=== PATIENT | female | born 1940 | race Caucasian/White ===

== ENCOUNTER → 2021-10-16 08:36 | Outpatient (BNVA) | payer MEDICARE, SELFPAY | PROVIDERS: PCP Student in an Organized Health Care Education/Training Program; Visit Provider Nurse Practitioner Family | DX: I48.19 Other persistent atrial fibrillation (principal); Z95.0 Presence of cardiac pacemaker | CPT/HCPCS: 99213 ==

== ENCOUNTER → 2022-01-10 10:10 | Outpatient (BNVA) | payer MEDICARE, SELFPAY | PROVIDERS: PCP Student in an Organized Health Care Education/Training Program; Visit Provider Internal Medicine | DX: I48.19 Other persistent atrial fibrillation (principal); I10 Essential (primary) hypertension; Z95.0 Presence of cardiac pacemaker | CPT/HCPCS: 93280; 99213 ==

== ENCOUNTER 2022-01-28 05:19 | Day surgery (SDC) | payer MEDICARE, SELFPAY ==
[2022-01-27 13:33] VITALS: BMI 25.9
--- NOTE | 2022-01-28 05:55 | XRR_ITS ---
PROCEDURE INFORMATION: Exam: XR Chest Exam date and time: 01/28/2022 6:08 AM Age: 81 years old Clinical indication: Other: Pre op; Prior surgery; Surgery date: 6+ months; Surgery type: Pacemaker; Additional info: Pacemaker generator replacement TECHNIQUE: Imaging protocol: XR of the chest. Views: 1 view. Total images: 2 COMPARISON: No relevant prior studies available. FINDINGS: Tubes, catheters and devices: Cardiac pacemaker is in place with leads appearing appropriately positioned. No pneumothorax. Lungs: Unremarkable. No consolidation. Pleural spaces: See Tubes, catheters and devices finding. Heart/Mediastinum: Upper normal heart size noted. Bones/joints: Unremarkable. XR/XR chest 1V portable [id number] IMPRESSION: 1. Cardiac pacemaker is in place with leads appearing appropriately positioned. No pneumothorax. 2. No acute cardiopulmonary process.
[2022-01-28 06:07] VITALS: BP 155/81; PULSE 65; RESP 18; TEMP 36.2; O2SAT 98
[2022-01-28 06:20] LABS: Urine Appearance SL Hazy (CLEAR); Urine Color Yellow (Yellow); pH Urine 5 (5-7)
[2022-01-28 06:21] LABS: Add Urine Culture? No; Add Urine Microscopic? YES; Bacteria Urine 1+ /hpf; Bilirubin Urine Neg (Negative); Blood Urine Neg (Negative); Glucose Urine UA Norm (Normal); Ketones Urine Negative (Negative); Leukocyte Esterase Urine 1+ (Negative); Mucus Urine TRACE /hpf; Nitrate Urine Negative (Negative); Protein Urine Neg (Negative); RBC Urine 0-4 /hpf (0-2); Specific Gravity, Urine 1.015 (1.005-1.030); Squamous Epithelial Cell Urine 25-40 /hpf (0-5); Urobilinogen Urine 1 mg/dL (Negative); WBC Urine 0-4 /hpf (0-5)
--- NOTE | 2022-01-28 06:26 | W.PM.OPSUD ---
Surgery/Procedure H&P Update DATE OF PROCEDURE: January 28, 2022 DATE H&P PERFORMED: 01/10/22 H&P UPDATE INFORMATION: I have reviewed H&P completed within last 30 days, I have examined patient prior to procedure and No changes to prior documentation CHANGES TO PREVIOUS DOCUMENTATION: We will plan for pacemaker generator exchange from [employer] to [employer] generator. PREOP DIAGNOSIS: Pacemaker generator end of service PLANNED PROCEDURE: Operation Date: 01/28/22 07:00 Proposed Procedures p Pacemaker Exchange /end of life for battery(Not Applicable) - Raman Quick MD
[2022-01-28] MEDS: sodium chloride 0.9% 1,000 ML 30 ML IV (06:34)
--- NOTE | 2022-01-28 06:38 | P.ANESASSM_ITS ---
Pre-Anesthetic Assessment Height/Weight: Height 1.65 m Weight 70.76 kg Temp Pulse Resp BP Pulse Ox 97.2 F L 65 18 155/81 98 01/28/22 06:07 01/28/22 06:07 01/28/22 06:07 01/28/22 06:07 01/28/22 06:07 Preop Diagnosis: Pacemaker generator end of service Operation Date: 01/28/22 07:00 Proposed Procedures p Pacemaker Exchange /end of life for battery(Not Applicable) - Raman Quick MD Familial anesthetic complications: NOne Was Beta Juancarlos taken within 24 hours: N/A Was Clonidine taken within 24 hours: N/A Last intake: Intake Last Liquid Date 01/27/22 Last Liquid Time 18:30 Last Solid Date 01/27/22 Last Solid Time 18:00 Social No alcohol and No tobacco Exam alert, oriented x 3, clear to auscultation bilaterally and regular rate & rhythm Airway Mallampati: Class II Dentition: partials Pulmonary None reported CV/HEM Atrial Fibrillation and Hypertension Pacer for tachy-robson syndrome None reported Hepatic None reported GI None reported Metabolic None reported Musc/skel None reported Neuropsych None reported Anesthetic Plan ASA status: 3 Anesthesia: MAC Risk of > 500 ml blood loss (7ml/kg in children): No Medications/Allergies Home Medications Medication Instructions Recorded Confirmed Last Taken Type estradiol 2 mg tablet 2 mg PO DAILY 09/17/20 01/28/22 01/26/22 History lisinopril 20 2 tab PO DAILY 09/17/20 01/28/22 01/26/22 History mg-hydrochlorothiazide 25 mg tablet rivaroxaban 20 mg tablet (Xarelto) 20 mg PO DAILY 09/17/20 01/28/22 01/26/22 History furosemide 20 mg tablet 20 mg PO DAILY PRN 01/16/21 01/28/22 Unknown History multivitamin 1 tab PO DAILY 01/16/21 01/28/22 01/26/22 History metoprolol succinate 25 mg 25 mg PO BID 01/27/22 01/28/22 01/28/22 History tablet,extended release 24 hr Allergies Allergy/AdvReac Type Severity Reaction Status Date / Time aspirin Allergy bleed Verified 01/28/22 06:14 Current Medications Generic Name Dose Route Start Last Admin Trade Name Freq PRN Reason Stop Dose Admin Sodium Chloride 1,000 mls @ 30 mls/hr 01/28/22 06:00 01/28/22 06:34 Sodium Chloride 0.9% IV 01/29/22 05:59 30 mls/hr .Q24H SOFYA Administration PFSH Anesthesia Medical History Atrial fibrillation History of nonmelanoma skin cancer HTN (hypertension) Pacemaker Surgical History H/O: hysterectomy Hx of cholecystectomy Family History Father Cancer Chronic kidney disease (CKD) Mother CAD (coronary artery disease), Onset Age: 80 Cancer Lung disease Family/Other Chronic kidney disease (CKD) Grandfather Stroke Denies family history of Diabetes Clotting disorder Dementia Suicide Anesthesia complication Bleeding disorder Social History Smoking and tobacco status: never smoked Alcohol intake: never Data Anesthesia Urine 01/28/22 Range/Units 06:04 Urine Color Yellow (Yellow) Urine Appearance Sl hazy (CLEAR) Urine pH 5 (5-7) Ur Specific [place] 1.015 (1.005-1.030) Urine Protein Neg (Negative) Urine Glucose (UA) Norm (Normal) Urine Ketones Negative (Negative) Urine Nitrate Negative (Negative) Urine Bilirubin Neg (Negative) Ur Leukocyte Esterase 1+ H (Negative) Urine RBC 0-4 H (0-2) /hpf Urine WBC 0-4 H (0-5) /hpf Cardiac Studies: No Data to Display
[2022-01-28 06:47] LABS: Basophils % 0.5 %; Eosinophils # 0.1 10^3/uL (0.0-0.8); Eosinophils % 1.5 %; Hematocrit 38.6 % (37.0-47.0); Hemoglobin 13.1 g/dL (11.5-15.3); Lymphocytes # 2.3 10^3/uL (0.8-4.8); Lymphocytes % 28.8 %; Mean Corpuscular HGB Conc 33.9 g/dL (30.0-36.0); Mean Corpuscular Hemoglobin 31.9 pg (28.0-34.0); Mean Corpuscular Volume 93.9 fl (81-99); Mean Platelet Volume 10.7 fL (7.4-10.4); Monocytes # 0.7 10^3/uL (0.2-0.9); Monocytes % 9.3 %; Neutrophils # 4.72 10^3/uL (1.8-7.7); Neutrophils % 59.6 %; Nucleated Red Blood Cells % 0 %; Platelet Count 215 10^3/cmm (130-400); Red Blood Count 4.11 10^6/uL (4.1-5.3); White Blood Count 7.9 10^3/uL (4.0-10.0)
[2022-01-28 08:18] LABS: Blood Urea Nitrogen 19 mg/dL (8-23); Calcium 8.7 mg/dL (8.5-10.5); Carbon Dioxide 25 mmol/L (22-29); Chloride 99 mmol/L (98-107); Glucose 79 mg/dL (65-115); Osmolality Calculated 283 mOsm/kg (285-295); Sodium 136 mmol/L (136-145)
[2022-01-28 08:35] LABS: Anion Gap 16.3 (5-19); Potassium 4.3 mmol/L (3.5-5.1)
[2022-01-28] MEDS: ceFAZolin 1,000 mg SDV 1000 MG IRRIGATION (10:13)
[2022-01-28] MEDS: lidocaine 2% INJ 20 mL INJECTION (10:14)
[2022-01-28 10:44] VITALS: BP 99/58; PULSE 59; RESP 16; TEMP 36.2; O2SAT 99
[2022-01-28 10:50] VITALS: BP 107/58; PULSE 59; RESP 16; O2SAT 97
--- NOTE | 2022-01-28 10:54 | P.OP_ITS ---
Operative Report Date of procedure: January 28, 2022 Pre-op diagnosis: Preop Diagnosis Pacemaker generator end of service Post-op diagnosis: same Procedure done: Dual-chamber pacemaker generator exchange Implants: Medtronic pacing generator Specimens removed/disposition: [employer] pacemaker Surgeon: Raman Quick Anesthesia: MAC and Local Complications: None Condition: stable Disposition: same day Brief History: Ms. Cortez is an 81-year-old female with current dual-chamber pacemaker now in the service. This was removed and replaced several years ago in [place], [place]. Original indication with tachybradycardia syndrome. She currently has atrial fibrillation and is on Xarelto. Pacing generator is now at end of service and exchange has been recommended. Details of risk of the procedure were carefully discussed with Ms. Cortez and her . Appropriate consents have been reviewed and signed. Procedure: Ms. Cortez was appropriately positioned and sterilely prepped and draped. IV consicious sedation was given with anesthesia monitoring. 1% lidocaine was infiltrated through the prior insertion incision site. # 15 scalpel blade was used to incise the skin down to subcutaneous layer. Subsequently, using sharp and blunt dissection the pseudocapsule to the old generator was reached and opened with a scalpel blade. This area was then enhanced utilizing Metzenbaum scissors with care taken not to injure the pacing leads. Once the pocket was adequate opened, hemostats were utilized to deliver the old generator. Set screws were released and the leads were removed and inserted properly into the new generator with set screws then secured. The old generator was removed from the field. The incision was irrigated with antibiotic solution. Hemostasis was confirmed. The new generator was placed back into the old subcutaneous pocket. The wound was then closed in 2 layers of 3-0 Vicryl suture. Skin was closed in a subcuticular manner with 4-0 undyed Vicryl suture. A 2 layer pressure dressing was then applied. The entire system was interrogated and appropriate parameters obtained. She tolerated the procedure well and was taken to the [facility] very room in stable condition. I did genetic counsellor with her at the completion of the procedure. Right atrial lead is sensing in atrial fibrillation with an impedance of 399 ohms. Right ventricular lead has a sensing amplitude of 9.0 mV with an impedance of 573 ohms and a capture threshold of 1.25 V. Pacemaker has been set to VVIR with a lower rate of 60 and upper rate of 130. New pacing generator is Medtronic model [id number] Serial Number: [id number]
[2022-01-28 11:10] VITALS: BP 110/62; PULSE 62; RESP 18; TEMP 36.1; O2SAT 97
[2022-01-28 11:56] VITALS: BP 104/65; PULSE 60; RESP 18; O2SAT 95
--- NOTE | 2022-01-28 17:11 | ANE.PACU2 ---
Inpatient post-anesthesia follow up: Airway intact: Yes Vital signs: Temperature 97 F Pulse Rate 60 Respiratory Rate 18 Blood Pressure 104/65 Pulse Oximetry 95 Oxygen Delivery Me thod Room Air Oxygen Flow Rate Fraction of Inspir ed Oxygen Hydration adequate: Yes Nausea and vomiting: No Pain level: 1 Mental status: Baseline
== END 2022-01-28 12:15 | disposition home or self-care (01) ==
PROVIDERS: PCP Student in an Organized Health Care Education/Training Program; Visit Provider Thoracic Surgery (Cardiothoracic Vascular Surgery)
PROC: 0JPT0PZ Removal of Cardiac Rhythm Related Device from Trunk Subcutaneous Tissue and Fascia, Open Approach (ICD-10-PCS; CPT 33228; principal; 2022-01-28 07:00)
DX: Z45.010 Encounter for checking and testing of cardiac pacemaker pulse generator [battery] (principal); I48.91 Unspecified atrial fibrillation; I10 Essential (primary) hypertension
CPT/HCPCS: 33228; 71045; 80048; 81001; 85025; C1786; J0690; J2370; J2704; J3010; J7030

== ENCOUNTER → 2022-02-03 14:20 | Outpatient (BNVA) | payer MEDICARE, SELFPAY | PROVIDERS: PCP Student in an Organized Health Care Education/Training Program; Visit Provider Nurse Practitioner Family | DX: Z09 Encounter for follow-up examination after completed treatment for conditions other than malignant neoplasm (principal); Z95.0 Presence of cardiac pacemaker | CPT/HCPCS: 99213; 99214 ==

== ENCOUNTER → 2022-03-10 11:15 | Outpatient (BNVA) | payer MEDICARE, SELFPAY | PROVIDERS: PCP Student in an Organized Health Care Education/Training Program; Visit Provider Internal Medicine Cardiovascular Disease | DX: I48.19 Other persistent atrial fibrillation (principal); I10 Essential (primary) hypertension; Z95.0 Presence of cardiac pacemaker | CPT/HCPCS: 99213 ==

== ENCOUNTER → 2022-03-21 09:25 | Outpatient (BNVA) | payer MEDICARE, SELFPAY | PROVIDERS: PCP Student in an Organized Health Care Education/Training Program; Visit Provider Internal Medicine | DX: Z45.010 Encounter for checking and testing of cardiac pacemaker pulse generator [battery] (principal) | CPT/HCPCS: 93280 ==

== ENCOUNTER → 2022-07-04 09:08 | Outpatient (BNVA) | payer MEDICARE, SELFPAY | PROVIDERS: PCP Student in an Organized Health Care Education/Training Program; Visit Provider Internal Medicine | DX: I48.19 Other persistent atrial fibrillation (principal); Z95.0 Presence of cardiac pacemaker; I10 Essential (primary) hypertension | CPT/HCPCS: 93280; 99213 ==

== ENCOUNTER → 2022-12-18 13:32 | Outpatient (BNVA) | payer MEDICARE, SELFPAY | PROVIDERS: PCP Student in an Organized Health Care Education/Training Program; Visit Provider Dermatology | DX: L82.1 Other seborrheic keratosis (principal); D22.0 Melanocytic nevi of lip; L57.0 Actinic keratosis | CPT/HCPCS: 17000; 99213 ==

== ENCOUNTER → 2023-01-09 10:50 | Outpatient (BNVA) | payer MEDICARE, SELFPAY | PROVIDERS: PCP Physician Assistant; Visit Provider Nurse Practitioner Family | DX: I10 Essential (primary) hypertension (principal); I48.19 Other persistent atrial fibrillation; Z95.0 Presence of cardiac pacemaker; Z79.01 Long term (current) use of anticoagulants | CPT/HCPCS: 99214 ==

== ENCOUNTER → 2023-01-20 09:47 | Outpatient (BNVA) | payer MEDICARE, SELFPAY | PROVIDERS: PCP Physician Assistant; Visit Provider Internal Medicine | DX: Z45.010 Encounter for checking and testing of cardiac pacemaker pulse generator [battery] (principal) | CPT/HCPCS: 93296 ==

== ENCOUNTER → 2023-08-05 15:47 | Outpatient (BNVA) | payer MEDICARE, SELFPAY | PROVIDERS: PCP Physician Assistant; Visit Provider Internal Medicine Cardiovascular Disease | DX: R06.02 Shortness of breath (principal) | CPT/HCPCS: 36415; 80048; 83880; 99214 ==